=== PATIENT | female | born 1970 | race Caucasian/White ===

== ENCOUNTER 2016-05-02 06:49 | Emergency (ER) | payer OTHER ==
[~2016-05-02] VITALS: Ht 157.5 cm; Wt 79.2 kg
[2016-05-02] MEDS ORDERED: IV NORMAL SALINE 1000ML BAG 1,000 ML IV SCH (06:54)
[2016-05-02 07:18] LABS: BASO % 1 % (0-3); EOS % 1 % (0-3); HEMATOCRIT 32.4 % (36.0-47.0); HEMOGLOBIN 9.7 g/dL (12.0-15.5); LYMPH # 1.3 x10^3/uL (1.0-4.8); LYMPH % 28 % (24-48); MEAN CORPUSCULAR HEMOGLOBIN 21 pg (25-35); MEAN CORPUSCULAR HGB CONC 30 g/dL (31-37); MEAN CORPUSCULAR VOLUME 72 fL (79-100); MONO % 4 % (0-9); NEUT % 67 % (31-73); PLATELET COUNT 295 x10^3/uL (140-400); RED BLOOD COUNT 4.51 x10^6/uL (3.50-5.40); RED CELL DISTRIBUTION WIDTH 18.2 % (11.5-14.5); WHITE BLOOD COUNT 4.5 x10^3/uL (4.0-11.0)
[2016-05-02 07:23] LABS: CALCIUM 8.6 mg/dL (8.5-10.1); CREATININE 0.6 mg/dL (0.6-1.0); GFR 108.1; POTASSIUM 3.5 mmol/L (3.5-5.1)
[2016-05-02 07:33] LABS: INR 0.9 (0.8-1.1); PROTHROMBIN TIME PATIENT 11.8 SEC (11.7-14.0)
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
[2016-05-02 10:14] LABS: OVALOCYTES PRESENT; PLT ESTIMATE ADEQUATE (ADEQUATE); POIKILOCYTOSIS PRESENT
[2016-05-02 10:15] LABS: ANISOCYTOSIS SLIGHT; HYPOCHROMIA SLIGHT
[2016-05-02 10:20] LABS: NEG OBC UR NEG; POS OBC UR POS
[2016-05-02] MEDS ORDERED: NAPR375T3 PO (10:29)
[2016-05-02 10:53] VITALS: BP 133/87
== END 2016-05-02 10:54 | disposition home or self-care (01) ==
LOC: ER 06:49
DX: R04.0 Epistaxis (principal); V47.5XXA Car driver injured in collision with fixed or stationary object in traffic accident, initial encounter; Y93.89 Activity, other specified; Y92.89 Other specified places as the place of occurrence of the external cause; Y99.8 Other external cause status
CPT/HCPCS: 36415; 70450; 70486; 72125; 80048; 81025; 85007; 85027; 85610; 85730; 96360; 99285; J7030